=== PATIENT | male | born 1990 | race Caucasian/White ===

== ENCOUNTER 2017-05-28 15:03 | Emergency (ER) | payer BC ==
[2017-05-28 15:20] VITALS: BP 135/82; RESP 18; TEMP 98.9
[2017-05-28] MEDS ORDERED: IPRATROPIUM-ALBUTEROL 3 ML NEB INHALATION STA (16:02)
--- NOTE | 2017-05-28 16:10 | ED ---
SOB HPI - General Chief Complaint: Shortness of Breath Stated Complaint: SOB, Asthma Time Seen by Provider: 05/28/17 15:52 Source: patient, RN notes reviewed Mode of arrival: ambulatory Limitations: no limitations - History of Present Illness Initial Comments: This is a 27-year-old male who presents to the emergency department with chief complaint of shortness of breath. Patient states he has a history of asthma. He states that he has been feeling generally unwell for the past 2 days. He complains of cough, sinus congestion, runny nose, headache and myalgias. Patient states that he was at a seminar prior to arrival and was using his inhaler multiple times. He states that he continues to feel out of breath so presented to the emergency department. Denies any recorded fevers but states that he has been feeling on and off hot and cold. Denies chest pain, abdominal pain, nausea or vomiting, diarrhea or constipation. - Related Data Previous Rx's Medication Instructions Recorded traMADol HCl [Ultram] 50 mg PO Q4H PRN #20 tab 11/22/13 Ipratropium-Albuterol Nebulize 3 ml INHALATION Q6H PRN #30 neb 06/01/15 [Duoneb 0.5 mg-3 mg/3 ml Soln] methylPREDNISolone Dose Pack 4 mg PO DIRECTED #21 package 06/01/15 [Medrol Dose Pack] Oseltamivir [Tamiflu] 75 mg PO Q12HR #10 cap 05/28/17 Allergies Allergy/AdvReac Type Severity Reaction Status Date / Time No Known Allergies Allergy Verified 05/28/17 15:20 Review of Systems ROS Statement: Those systems with pertinent positive or pertinent negative responses have been documented in the HPI. ROS Other: All systems not noted in ROS Statement are negative. Past Medical History Past Medical History: Asthma History of Any Multi-Drug Resistant Organisms: None Reported Additional Past Surgical History / Comment(s): lower back cyst removed Past Psychological History: No Psychological Hx Reported Smoking Status: Never smoker Past Alcohol Use History: Occasional Past Drug Use History: None Reported General Exam - General Exam Comments Initial Comments: General: Awake and alert, well-developed; in no apparent distress. HEENT: Head atraumatic, normocephalic. Pupils are equal, round and reactive to light. Extraocular movements intact. Erythematous bilateral conjunctiva. Oropharynx moist without erythema or exudate. Bilateral TMs are pearly without effusion. Neck: Supple. Normal ROM. Cardiovascular: Regular rate and rhythm. No murmurs, rubs or gallops. Chest symmetrical. Respiratory: Lungs clear to auscultation bilaterally. No wheezes, rales or rhonchi. Normal respiratory effort with no use of accessory muscles. Musculoskeletal: Normal ROM, no tenderness, no pedal edema. Pulses 2+ equal and palpable bilaterally. Skin: [place], warm and dry without rashes or lesions. Neurological: Alert and oriented x3. CN II-XII grossly intact. Speech is fluent and answers are appropriate. No focal neuro deficits. Psychiatric: Normal mood and affect. No overt signs of depression or anxiety noted. Limitations: no limitations Course Vital Signs 05/28/17 05/28/17 05/28/17 15:17 16:05 16:17 Temperature 98.9 F Pulse Rate 105 H 104 H 108 H Respiratory 18 Rate Blood Pressure 135/82 O2 Sat by Pulse 98 Oximetry Medical Decision Making - Medical Decision Making This is a 27-year-old male who presented to the emergency department with chief complaint of shortness of breath. In the emergency department, his vital signs are stable and he does not appear to be in any acute distress. He was given a breathing treatment while in the emergency department. He did test positive for influenza A. Patient will be discharged home with a prescription for Tamiflu. Chest x-ray revealed no acute abnormalities. Patient developed a fever while in the emergency department and was treated with Tylenol. He is in no acute distress and will be discharged home. Recommended doing at-home nebulizer treatments up to 4 times daily. Return parameters were discussed. Patient is in agreement with plan and voices understanding. All questions were answered. - Lab Data Lab Results 05/28/17 Range/Units 15:21 Influenza Type A RNA Detected H (Not Detectd) Influenza Type B (PCR) Not Detected (Not Detectd) - Radiology Data Radiology results: report reviewed Chest x-ray findings: There is no focal airspace opacity, pleural effusion or pneumothorax seen currently. Interval resolution of left basilar linear opacity on prior. The cardiac silhouette size is within normal limits. The osseous structures are intact. Impression: No suspicious acute pulmonary processes currently. Disposition Clinical Impression: Influenza A Disposition: HOME SELF-CARE Condition: Good Instructions: Influenza (ED) Additional Instructions: Please take medications as prescribed. Please use at home nebulizing treatments up to 4 times daily. Please follow up with primary care provider within 1-2 days. Return to emergency department if symptoms should worsen or any concerns arise. Prescriptions: Oseltamivir [Tamiflu] 75 mg PO Q12HR #10 cap Referrals: Shawna Villanueva DO [Primary Care Provider] - 1-2 days Time of Disposition: 17:04
[2017-05-28 16:17] VITALS: PULSE 108
[2017-05-28] MEDS ORDERED: ACETAMINOPHEN TAB 500 MG TAB PO STA (16:47)
--- NOTE | 2017-05-28 16:59 | XR ---
EXAMINATION TYPE: XR chest 2V DATE OF EXAM: 05/28/2017 COMPARISON: Chest x-ray June 01, 2015. HISTORY: History of asthma with shortness of breath. TECHNIQUE: Frontal and lateral views of the chest are obtained. FINDINGS: There is no focal air space opacity, pleural effusion, or pneumothorax seen currently. Int erval resolution of left basilar linear opacity on prior. The cardiac silhouette size is within manuela l limits. The osseous structures are intact. IMPRESSION: No suspicious acute pulmonary process currently.
== END 2017-05-28 17:12 | disposition home or self-care (01) ==
LOC: EC 15:03
DX: J10.1 Influenza due to other identified influenza virus with other respiratory manifestations (principal); H11.89 Other specified disorders of conjunctiva; J45.909 Unspecified asthma, uncomplicated
CPT/HCPCS: 71046; 87502; 94640; 99285

== ENCOUNTER 2019-07-12 19:53 | Emergency (ER) | payer BC ==
--- NOTE | 2019-07-12 22:15 | ED ---
General Adult HPI - General Chief complaint: Dizziness Stated complaint: Dizziness, Nausea Time Seen by Provider: 07/12/19 21:28 Source: patient Mode of arrival: ambulatory Limitations: no limitations - History of Present Illness Initial comments: Carlos Manuel is a 29-year-old male with no significant past medical history presents the emergency department today for evaluation of near syncopal episode while working out. Patient states that he's been working out fairly regularly doing weights and getting light cardiac however today he was in a high intensity workout and begin feeling very flushed and lightheaded. He sat down and was kept having waves of lightheadedness and nausea without vomiting which prompted him to come to the ER for evaluation. Patient didn't have any chest pain palpitations or shortness of breath. He has no family history of cardiac disease or sudden cardiac . He has no history of diabetes or hypertension. He did eat prior to his workout. He reports he is feeling better now now it is resting. - Related Data Previous Rx's Medication Instructions Recorded traMADol HCl [Ultram] 50 mg PO Q4H PRN #20 tab 11/22/13 Ipratropium-Albuterol Nebulize 3 ml INHALATION Q6H PRN #30 neb 06/01/15 [Duoneb 0.5 mg-3 mg/3 ml Soln] methylPREDNISolone Dose Pack 4 mg PO DIRECTED #21 package 06/01/15 [Medrol Dose Pack] Oseltamivir [Tamiflu] 75 mg PO Q12HR #10 cap 05/28/17 Allergies Allergy/AdvReac Type Severity Reaction Status Date / Time No Known Allergies Allergy Verified 07/12/19 20:29 Review of Systems ROS Statement: Those systems with pertinent positive or pertinent negative responses have been documented in the HPI. ROS Other: All systems not noted in ROS Statement are negative. Past Medical History Past Medical History: Asthma History of Any Multi-Drug Resistant Organisms: MRSA Date of last positivie culture/infection: 2009 MDRO Source:: left leg Additional Past Surgical History / Comment(s): lower back cyst removed Past Psychological History: No Psychological Hx Reported Smoking Status: Never smoker Past Alcohol Use History: Occasional Past Drug Use History: None Reported General Exam - General Exam Comments Initial Comments: Physical Exam GENERAL: Patient is well-developed and well-nourished. Patient is nontoxic and well-hyd rated and is in no distress. HENT: Normocephalic, Atraumatic. EYES: PERRL, EOMI PULMONARY: Unlabored respirations. No audible rales rhonchi or wheezing was noted. CARDIOVASCULAR: There is a regular rate and rhythm without any murmurs gallops or rubs. ABDOMEN: Soft and nontender with normal bowel sounds. SKIN: Skin is clear with no lesions or rashes and otherwise unremarkable. : Deferred NEUROLOGIC: Patient is alert and oriented x3. Moving all extremities spontaneously MUSCULOSKELETAL: Normal extremities with adequate strength and full range of motion. No lower extremity swelling or edema. No calf tenderness. PSYCHIATRIC: Normal psychiatric evaluation. Limitations: no limitations Course Vital Signs 07/12/19 20:29 Temperature 98.0 F Pulse Rate 88 Respiratory 16 Rate Blood Pressure 145/81 O2 Sat by Pulse 96 Oximetry EKG Findings - EKG Comments: EKG Findings:: EKG was obtained due to complaining ERCP, EKG was obtained at 2036, rate is 90 rhythm is sinus there is a normal axis, normal intervals, OR is 146, QRS is 98, QTC is [address] elevations or depressions no evidence of acute ischemia, infarction or arrhythmia. There is criteria for possible LVH. Medical Decision Making - Medical Decision Making She was seen and evaluated history is obtained from patient Previously healthy but obese gentleman who is recent started a workout routine, during a very intense workout today became very lightheaded and felt like he was going to vomit. This persisted which prompted him come the ER for evaluation. Upon arrival he is feeling much better. EKG was nonischemic no signs of arrhythmia, possible early LVH chest x-ray with no acute findings At this time patient has been asymptomatic throughout his 2 hour stay in the emergency department is comfortable with the plan for discharge home, patient was advised follow-up with his primary care physician and discuss outpatient echocardiogram. Disposition Clinical Impression: Near syncope Disposition: HOME SELF-CARE Condition: Stable Instructions (If sedation given, give patient instructions): Near Syncope (ED) Additional Instructions: Follow-up with her primary care physician for reevaluation and discussion of whether or not you need an echo for near syncope and EKG finding of possible LVH. Is patient prescribed a controlled substance at d/c from ED?: No Referrals: Shawna Villanueva DO [Primary Care Provider] - 1-2 days [facility] [Provider Group] - 1-2 days
--- NOTE | 2019-07-12 22:27 | XR ---
EXAMINATION TYPE: XR chest 2V DATE OF EXAM: 07/12/2019 COMPARISON: 05/28/2017 HISTORY: Syncope. Nausea. TECHNIQUE: FINDINGS: Heart and mediastinum are normal. Lungs are clear. Diaphragm is normal. Bony thorax is inta ct. The pulmonary vascularity is normal. There are chest leads. IMPRESSION: Normal chest. Inspiration decreased slightly compared to old exam.
[2019-07-12 22:47] VITALS: BP 130/80; PULSE 81; RESP 18; TEMP 98.6
== END 2019-07-12 22:47 | disposition home or self-care (01) ==
LOC: EC 19:53
DX: R55 Syncope and collapse (principal); R42 Dizziness and giddiness; E66.9 Obesity, unspecified; R11.0 Nausea; Z86.14 Personal history of Methicillin resistant Staphylococcus aureus infection; Z68.41 Body mass index [BMI] 40.0-44.9, adult
CPT/HCPCS: 71046; 93005; 99284

== ENCOUNTER 2022-03-11 16:21 | Emergency (ER) | payer BC, OTHER ==
[2022-03-11 17:00] VITALS: RESP 20
[2022-03-11] MEDS ORDERED: ACETAMINOPHEN TAB 500 MG TAB PO STA (17:21)
[2022-03-11] MEDS ORDERED: IBUPROFEN 800 MG TAB PO STA (17:21)
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
--- NOTE | 2022-03-11 18:51 | XR ---
PROCEDURE: XR ankle complete RT - 3V DATE AND TIME: 03/11/2022 5:50 PM CLINICAL INDICATION: [facility]; fall, pain TECHNIQUE: Department protocol COMPARISON: None FINDINGS: The bones and joints appear intact. There is lateral soft tissue swelling. IMPRESSION: Negative for fracture/malalignment.
--- NOTE | 2022-03-11 18:53 | XR ---
PROCEDURE: XR foot complete RT - 3V DATE AND TIME: 03/11/2022 5:50 PM CLINICAL INDICATION: [facility]; fall, pain TECHNIQUE: Department protocol COMPARISON: None FINDINGS: There is no fracture or malalignment. The soft tissues are unremarkable. IMPRESSION: NO ACUTE PROCESS.
[2022-03-11 20:01] VITALS: TEMP 98
[2022-03-11 20:02] VITALS: BP 132/70; PULSE 76
== END 2022-03-11 19:50 | disposition home or self-care (01) ==
LOC: EC 16:21
DX: S93.401A Sprain of unspecified ligament of right ankle, initial encounter (principal); J45.909 Unspecified asthma, uncomplicated; W18.42XA Slipping, tripping and stumbling without falling due to stepping into hole or opening, initial encounter
CPT/HCPCS: 73610; 73630; 99283; L4350

== ENCOUNTER 2022-04-10 22:00 | Emergency (ER) | payer BC ==
[2022-04-10] MEDS ORDERED: methylPREDNISolone SOD SUCCI 125 MG/2 ML VIAL IV STA (22:12)
[2022-04-10] MEDS ORDERED: ACETAMINOPHEN TAB 500 MG TAB PO STA (22:13)
[2022-04-10] MEDS ORDERED: ALBUTEROL HFA INHALER INHALATION STA (22:14)
--- NOTE | 2022-04-10 22:18 | ED ---
General Adult HPI - General Chief complaint: Upper Respiratory Infection Stated complaint: SOB Time Seen by Provider: 04/10/22 22:07 Source: patient, RN notes reviewed Mode of arrival: ambulatory - History of Present Illness Initial comments: This is a pleasant 32-year-old male with a history of asthma. He presents to the emergency department stating that he has felt ill since Tuesday. Patient states he started with symptoms of what he is calling a "chest cold cold." Pat ient states he's had a runny nose, dry cough. Patient also complaining of some left-sided chest pain which started a few hours ago. He states it seemed to radiate toward his left shoulder and was causing some tingling down his left arm. He states he believes this was related to the amount of coffee he's been doing. Patient has been using his inhaler at home but he states it is so does not helping. He is on aspirin exposed to his daughter who was symptoms of respiratory disease. Patient states he has felt febrile, has had body aches, mild headache. Chest pain not related to exertion. No diaphoresis. no changes in vision or hearing, no sore throat or difficulty with speech, no neck pain,, no abdominal pain, no nausea or vomiting, no changes in urination or bowel movements, no numbness or tingling, no extremity pain, no skin rashes or lesions. No history of immunosuppression. No history of cardiac disease or diabetes. Past medical, surgical, social, and family history reviewed. - Related Data Previous Rx's Medication Instructions Recorded traMADol HCl [Ultram] 50 mg PO Q4H PRN #20 tab 11/22/13 Ipratropium-Albuterol Nebulize 3 ml INHALATION Q6H PRN #30 neb 06/01/15 [Duoneb 0.5 mg-3 mg/3 ml Soln] methylPREDNISolone Dose Pack 4 mg PO DIRECTED #21 package 06/01/15 [Medrol Dose Pack] Oseltamivir [Tamiflu] 75 mg PO Q12HR #10 cap 05/28/17 Albuterol Inhaler [Ventolin Hfa 2 puff INHALATION Q4HR PRN #1 each 04/10/22 Inhaler] Albuterol Nebulized [Ventolin 2.5 mg INHALATION Q4H #50 ml 04/10/22 Nebulized] Allergies Allergy/AdvReac Type Severity Reaction Status Date / Time Iodinated Contrast Media Allergy Anaphylaxis Verified 04/10/22 22:05 Review of Systems ROS Statement: Those systems with pertinent positive or pertinent negative responses have been documented in the HPI. ROS Other: All systems not noted in ROS Statement are negative. Past Medical History Past Medical History: Asthma History of Any Multi-Drug Resistant Organisms: MRSA Date of last positivie culture/infection: 2009 MDRO Source:: left leg Additional Past Surgical History / Comment(s): lower back cyst removed Past Psychological History: No Psychological Hx Reported Smoking Status: Never smoker Past Alcohol Use History: Occasional Past Drug Use History: None Reported General Exam - General Exam Comments Initial Comments: Patient appears to be mild distress. Patient noted be tachycardic and hypoxemic on arrival. Patient not tachypneic. Mild increased work of breathing. General appearance: alert, in distress, obese Head exam: Present: atraumatic, normocephalic, normal inspection Eye exam: Present: normal appearance, PERRL, EOMI. Absent: scleral icterus, conjunctival injection, periorbital swelling ENT exam: Present: normal exam, normal oropharynx, mucous membranes moist, TM's normal bilaterally, normal external ear exam. Absent: mucous membranes dry Neck exam: Present: normal inspection, full ROM. Absent: tenderness, meningismus, lymphadenopathy Respiratory exam: Present: wheezes (Scant expiratory wheezes with forced expiration). Absent: respiratory distress, rales, rhonchi, stridor Cardiovascular Exam: Present: normal rhythm, tachycardia, normal heart sounds. Absent: systolic murmur, diastolic murmur, rubs, gallop, clicks GI/Abdominal exam: Present: soft, normal bowel sounds. Absent: distended, tenderness, guarding, rebound, rigid Extremities exam: Present: normal inspection, full ROM, normal capillary refill. Absent: tenderness, pedal edema, joint swelling, calf tenderness Back exam: Present: normal inspection Neurological exam: Present: alert, oriented X3, CN II-XII intact Psychiatric exam: Present: normal affect, normal mood Skin exam: Present: warm, dry, intact, normal color. Absent: rash Course Vital Signs 04/10/22 04/10/22 04/10/22 22:03 22:11 22:50 Temperature 99.9 F H 99.2 F Pulse Rate 111 H 105 H Respiratory 18 24 22 Rate Blood Pressure 126/70 135/87 O2 Sat by Pulse 93 L 93 L Oximetry 04/10/22 23:41 Temperature Pulse Rate 100 Respiratory 18 Rate Blood Pressure 123/70 O2 Sat by Pulse 92 L Oximetry - Reevaluation(s) Reevaluation #1: 04/10/22 23:47 Medical record is reviewed Symptoms are improved here in the emergency department Patient is informed of results and questions answered Patient in no distress Reevaluation #2: 04/10/22 23:54 Patient much improved on reevaluation. Still has oxygen saturation 93% on room air. No increased work of breathing. EKG Findings - EKG Comments: EKG Findings:: EKG done at 2216 independently reviewed by me reveals sinus tachycardia with a rate of 108. Normal axis. Normal intervals. Nonspecific T- wave abnormality. Mainly flattening in lead V6 and lead 3. No more tears pathology otherwise. When compared to the previous study from 07/12/2019 there is no significant change. Medical Decision Making - Medical Decision Making Differential diagnosis, viral syndrome secondary to COVID-19, influenza, RSV, other viral etiology such as adenovirus or rhinovirus. Possible bacterial pneumonia. I think this is less likely cardiac disease based on the patient's presenting symptomology. However we will order an EKG and a troponin. Pulmonary embolism possibility but unlikely. EKG did not show any significant changes. Troponin negative. D-dimer negative. Patient's heart score is actually 0. Given the patient's age and low heart score, I do not believe he is significant risk for cardiac disease. Suspect the patient's symptomology is related to the influenza a Chest x-ray independently interpreted by me reveals no evidence of acute pathology. Reviewed radiology interpretation. Discussed conservative therapy with the patient. Patient outside the window for Tamiflu. The case was discussed in detail with ED attending physician. Presentation, findings, treatment plan discussed in detail. Patient was told to return to the ER for any signs or symptoms worsen. Told to return immediately if any other problems arise. All questions answered. Treatment plan discussed. Patient in agreement Every effort has been made to ensure accuracy of this dictation. However, due to the limitations of electronic medical records and dictation devices, errors in charting still occur. Discussed all findings with the patient. Patient concurs with treatment plan. Supervising physician Dr. Peres - Lab Data Result diagrams: 04/10/22 22:16 04/10/22 22:16 Lab Results 04/10/22 04/10/22 04/10/22 Range/Units 22:16 22:16 22:16 WBC 4.6 (3.8-10.6) k/uL RBC 5.07 (4.30-5.90) m/uL Hgb 15.0 (13.0-17.5) gm/dL Hct 42.5 (39.0-53.0) % MCV 84.0 (80.0-100.0) fL MCH 29.6 (25.0-35.0) pg MCHC 35.2 (31.0-37.0) g/dL RDW 12.3 (11.5-15.5) % Plt Count 145 L (150-450) k/uL MPV 9.5 Neutrophils % 68 % Lymphocytes % 20 % Monocytes % 7 % Eosinophils % 0 % Basophils % 1 % Neutrophils # 3.1 (1.3-7.7) k/uL Lymphocytes # 0.9 L (1.0-4.8) k/uL Monocytes # 0.3 (0-1.0) k/uL Eosinophils # 0.0 (0-0.7) k/uL Basophils # 0.0 (0-0.2) k/uL D-Dimer (<0.60) mg/L FEU Sodium 134 L (137-145) mmol/L Potassium 3.8 (3.5-5.1) mmol/L Chloride 100 (98-107) mmol/L Carbon Dioxide 24 (22-30) mmol/L Anion Gap 10 mmol/L BUN 16 (9-20) mg/dL Creatinine 1.02 (0.66-1.25) mg/dL Est GFR (CKD-EPI)AfAm >90 (>60 ml/min/1.73 sqM) Est GFR (CKD-EPI)NonAf >90 (>60 ml/min/1.73 sqM) Glucose 108 H (74-99) mg/dL Calcium 8.9 (8.4-10.2) mg/dL Magnesium 1.9 (1.6-2.3) mg/dL Total Bilirubin 0.4 (0.2-1.3) mg/dL AST 39 (17-59) U/L ALT 34 (4-49) U/L Alkaline Phosphatase 70 (38-126) U/L Troponin I <0.012 (0.000-0.034) ng/mL Total Protein 6.9 (6.3-8.2) g/dL Albumin 4.3 (3.5-5.0) g/dL Influenza Type A (PCR) (Not Detectd) Influenza Type B (PCR) (Not Detectd) RSV (PCR) (Not Detectd) SARS-CoV-2 (PCR) (Not Detectd) 04/10/22 04/10/22 Range/Units 22:16 22:49 WBC (3.8-10.6) k/uL RBC (4.30-5.90) m/uL Hgb (13.0-17.5) gm/dL Hct (39.0-53.0) % MCV (80.0-100.0) fL MCH (25.0-35.0) pg MCHC (31.0-37.0) g/dL RDW (11.5-15.5) % Plt Count (150-450) k/uL MPV Neutrophils % % Lymphocytes % % Monocytes % % Eosinophils % % Basophils % % Neutrophils # (1.3-7.7) k/uL Lymphocytes # (1.0-4.8) k/uL Monocytes # (0-1.0) k/uL Eosinophils # (0-0.7) k/uL Basophils # (0-0.2) k/uL D-Dimer 0.23 (<0.60) mg/L FEU Sodium (137-145) mmol/L Potassium (3.5-5.1) mmol/L Chloride (98-107) mmol/L Carbon Dioxide (22-30) mmol/L Anion Gap mmol/L BUN (9-20) mg/dL Creatinine (0.66-1.25) mg/dL Est GFR (CKD-EPI)AfAm (>60 ml/min/1.73 sqM) Est GFR (CKD-EPI)NonAf (>60 ml/min/1.73 sqM) Glucose (74-99) mg/dL Calcium (8.4-10.2) mg/dL Magnesium (1.6-2.3) mg/dL Total Bilirubin (0.2-1.3) mg/dL AST (17-59) U/L ALT (4-49) U/L Alkaline Phosphatase (38-126) U/L Troponin I (0.000-0.034) ng/mL Total Protein (6.3-8.2) g/dL Albumin (3.5-5.0) g/dL Influenza Type A (PCR) Detected A (Not Detectd) Influenza Type B (PCR) Not Detected (Not Detectd) RSV (PCR) Not Detected (Not Detectd) SARS-CoV-2 (PCR) Not Detected (Not Detectd) Disposition Clinical Impression: Influenza A, Asthma exacerbation, mild Disposition: HOME SELF-CARE Condition: Good Instructions (If sedation given, give patient instructions): Influenza (ED), Asthma (ED) Additional Instructions: Alternate acetaminophen and ibuprofen for fever control. Follow-up with your regular physician as directed. Return to the ER immediately if any symptoms worsen, new symptoms arise, or any other problems develop. Is patient prescribed a controlled substance at d/c from ED?: No Referrals: Shawna Villanueva DO [Primary Care Provider] - 1-2 days Time of Disposition: 23:58
[2022-04-10 22:39] LABS: Basophils % (A) 1 %; Eosinophils % (A) 0 %; HCT 42.5 % (39.0-53.0); Lymphocytes # (A) 0.9 k/uL (1.0-4.8); Lymphocytes % (A) 20 %; MCH 29.6 pg (25.0-35.0); MCHC 35.2 g/dL (31.0-37.0); Mean Platelet Volume 9.5; Monocytes # (A) 0.3 k/uL (0-1.0); Monocytes % (A) 7 %; Neutrophils # (A) 3.1 k/uL (1.3-7.7); Neutrophils % (A) 68 %; Platelet Count 145 k/uL (150-450); RBC 5.07 m/uL (4.30-5.90); RDW 12.3 % (11.5-15.5); WBC 4.6 k/uL (3.8-10.6)
--- NOTE | 2022-04-10 22:44 | XR ---
EXAMINATION TYPE: XR chest 2V DATE OF EXAM: 04/10/2022 COMPARISON: 11/18/2020 HISTORY: Short of breath TECHNIQUE: FINDINGS: Heart is normal. Lungs are clear. Diaphragm is normal. Bony thorax is intact IMPRESSION: Normal chest. No change.
[2022-04-10 22:50] VITALS: TEMP 99.2
[2022-04-10 22:53] LABS: ALT 34 U/L (4-49); AST 39 U/L (17-59); African American GFR (CKD) >90 (>60 ml/min/1.73 sqM); Albumin 4.3 g/dL (3.5-5.0); Alkaline Phosphatase 70 U/L (38-126); Anion Gap 10 mmol/L; Blood Urea Nitrogen 16 mg/dL (9-20); Calcium 8.9 mg/dL (8.4-10.2); Carbon Dioxide 24 mmol/L (22-30); Chloride 100 mmol/L (98-107); Glucose 108 mg/dL (74-99); Magnesium 1.9 mg/dL (1.6-2.3); Non-African American GFR(CKD) >90 (>60 ml/min/1.73 sqM); Potassium 3.8 mmol/L (3.5-5.1); Sodium 134 mmol/L (137-145); Total Bilirubin 0.4 mg/dL (0.2-1.3); Total Protein 6.9 g/dL (6.3-8.2)
[2022-04-10 23:41] VITALS: BP 123/70; PULSE 100; RESP 18
== END 2022-04-11 00:23 | disposition home or self-care (01) ==
LOC: EC 22:00
DX: J10.1 Influenza due to other identified influenza virus with other respiratory manifestations (principal); J45.901 Unspecified asthma with (acute) exacerbation; Z91.041 Radiographic dye allergy status; Z20.822 Contact with and (suspected) exposure to COVID-19
CPT/HCPCS: 99285; 96374; 36415; 94640; 93005; 85379; 80053; 83735; 84484; 85025; 87636; 71046; J2930

== ENCOUNTER 2022-05-31 20:00 | Emergency (ER) | payer BC ==
[2022-05-31] MEDS ORDERED: FLUORESCEIN STRIPS 1 MG STRIP RIGHT EYE ONE (21:11)
[2022-05-31] MEDS ORDERED: SULFACETAMIDE SOD 10% OPHTH DROPS 15 ML BTL RIGHT EYE STA (21:12)
--- NOTE | 2022-05-31 21:20 | ED ---
Eye Problem HPI - General Chief complaint: Eye Problems Stated complaint: rt eye irritation Time Seen by Provider: 05/31/22 20:41 Source: patient, RN notes reviewed Mode of arrival: ambulatory Limitations: no limitations - History of Present Illness Initial comments: This is a 32-year-old male who presents to the emergency department for eye problems. Patient states that earlier today, he started to develop redness and tearing to the right eye. Also states that he noticed mucus in the eye. States that his eye is very red, but not horribly painful. Denies any visual changes. He does not have a gritty or foreign body sensation in the eye. Does not believe that he scratched his eye or got anything in it. He has not had any fevers, chills, or upper respiratory symptoms. Denies any fevers, chills, sore throat, cough, dyspnea, chest pain, palpitations, abdominal pain, nausea, vomiting, diarrhea, back pain, or headaches. MD chief complaint: eye redness Location: right eye - Related Data Previous Rx's Medication Instructions Recorded traMADol HCl [Ultram] 50 mg PO Q4H PRN #20 tab 11/22/13 Ipratropium-Albuterol Nebulize 3 ml INHALATION Q6H PRN #30 neb 06/01/15 [Duoneb 0.5 mg-3 mg/3 ml Soln] methylPREDNISolone Dose Pack 4 mg PO DIRECTED #21 package 06/01/15 [Medrol Dose Pack] Oseltamivir [Tamiflu] 75 mg PO Q12HR #10 cap 05/28/17 Albuterol Inhaler [Ventolin Hfa 2 puff INHALATION Q4HR PRN #1 each 04/10/22 Inhaler] Albuterol Nebulized [Ventolin 2.5 mg INHALATION Q4H #50 ml 04/10/22 Nebulized] predniSONE 50 mg PO DAILY #5 tab 04/11/22 Allergies Allergy/AdvReac Type Severity Reaction Status Date / Time Iodinated Contrast Media Allergy Anaphylaxis Verified 04/10/22 22:05 Review of Systems ROS Statement: Those systems with pertinent positive or pertinent negative responses have been documented in the HPI. ROS Other: All systems not noted in ROS Statement are negative. Past Medical History Past Medical History: Asthma History of Any Multi-Drug Resistant Organisms: MRSA Date of last positivie culture/infection: 2009 MDRO Source:: left leg Additional Past Surgical History / Comment(s): lower back cyst removed Past Psychological History: No Psychological Hx Reported Smoking Status: Never smoker Past Alcohol Use History: Occasional Past Drug Use History: None Reported General Exam Limitations: no limitations General appearance: alert, in no apparent distress Head exam: Present: atraumatic, normocephalic, normal inspection Eye exam: Present: PERRL, EOMI, conjunctival injection (right) Pupils: Present: normal accommodation Respiratory exam: Present: normal lung sounds bilaterally. Absent: respiratory distress, wheezes, rales, rhonchi, stridor Cardiovascular Exam: Present: regular rate, normal rhythm, normal heart sounds. Absent: systolic murmur, diastolic murmur, rubs, gallop, clicks Neurological exam: Present: alert, oriented X3, CN II-XII intact Psychiatric exam: Present: normal affect, normal mood Skin exam: Present: warm, dry, intact, normal color. Absent: rash Course Vital Signs 05/31/22 05/31/22 20:09 21:52 Temperature 98 F 98.3 F Pulse Rate 96 86 Respiratory 16 17 Rate Blood Pressure 161/94 136/87 O2 Sat by Pulse 97 97 Oximetry Medical Decision Making - Medical Decision Making This is a 32-year-old male who presents to the emergency department for right eye pain and redness. Was pt. sent in by a medical professional or institution? @ -No Did you speak to anyone other than the patient for history? @ -No Did you review nursing and triage notes? @ -Yes, and I agree, it is accurate with regards to the patient's symptoms. Were old charts reviewed? @ -No Differential Diagnosis? @ -Differential Eye Redness: Conjunctivitis, corneal abrasion, blepharitis, episcleritis, subconjunctival hemorrhage, right eye, iritis, keratitis, scleritis, acute angle-closure glaucoma, this is not meant to be an all-inclusive list. What testing was considered but not performed? (CT, X-rays, U/S, labs)? Why? @ -None What meds were considered but not given? Why? @ -None Did you discuss the management of the patient with other professionals? @ -No Did you reconcile home meds? @ -No Was smoking cessation discussed for >3mins.? @ -No Was critical care preformed (if so, how long)? @ -No Were there social determinants of health that impacted care today? How? (Homelessness, low income, unemployed, alcoholism, drug addiction, transportation, low edu. Level, literacy, decrease access to med. care, [facility], rehab)? @ -No Was there de-escalation of care discussed even if they declined? (Discuss DNR or withdrawal of care, Hospice)? @ -No What co-morbidities impacted this encounter? (DM, HTN, Smoking, COPD, CAD, Cancer, CVA, Hep., AIDS, mental health diagnosis, sleep apnea, morbid obesity)? @ -None Was patient admitted / discharged? @ -Discharged. Fluorescein staining performed revealing no evidence of a corneal abrasion. Symptoms most consistent with a conjunctivitis. Will treat patient with sulfacetamide eyedrops. This was provided in the emergency department due to his pharmacy being closed. Dosing instructions reviewed. Also advised to apply warm compresses. Undiagnosed new problem with uncertain prognosis? @ -None Drug Therapy requiring intensive monitoring for toxicity (Heparin, Nitro, I nsulin, Cardizem)? @ -None Were any procedures done? @ -Fluorescein staining Diagnosis/symptom? @ -Conjunctivitis Acute, or Chronic, or Acute on Chronic? @ -Acute Uncomplicated (without systemic symptoms) or Complicated (systemic symptoms)? @ -Uncomplicated Side effects of treatment? @ -None Exacerbation, Progression, or Severe Exacerbation] @ -Not applicable Poses a threat to life or bodily function? @ -No Return precautions reviewed in depth, the patient is instructed to return to the emergency department with any new, worsening, or concerning symptoms. Patient verbalized understanding. This case was discussed in detail with the attending ED physician, Dr. Villanueva. Presentation, findings, and treatment plan discussed in detail as well. Disposition Clinical Impression: Conjunctivitis Disposition: HOME SELF-CARE Instructions (If sedation given, give patient instructions): Conjunctivitis (ED) Additional Instructions: Return to the emergency department with any new, worsening, or concerning symptoms. Apply 2 drops in the right eye every 2-3 hours for 5-7 days. Apply warm compresses as well. Follow up with your primary care provider in 1-2 days. Is patient prescribed a controlled substance at d/c from ED?: No Referrals: Shawna Villanueva, [Primary Care Provider] - 1-2 days
[2022-05-31] MEDS: PROPARACAINE 0.5% OPHTH DROPS 15 ML BTL RIGHT EYE SCH ×3 (21:23→21:29)
[2022-05-31 21:53] VITALS: BP 136/87; PULSE 86; RESP 17; TEMP 98.3
== END 2022-05-31 21:53 | disposition home or self-care (01) ==
LOC: EC 20:00
DX: H10.9 Unspecified conjunctivitis (principal); J45.909 Unspecified asthma, uncomplicated; Z91.041 Radiographic dye allergy status
CPT/HCPCS: 99283

== ENCOUNTER → 2024-02-17 | Outpatient (CLI) | payer BC ==
[2024-02-17 18:53] LABS: Calcium 10.1 mg/dL (8.7-10.3)
== END | disposition home or self-care (01) ==
LOC: LABWHC1 13:44
PROVIDERS: ATTEND Family Medicine
DX: E83.52 Hypercalcemia (principal)
CPT/HCPCS: 36415; 82306; 82310; 83970

== ENCOUNTER → 2024-04-11 | Outpatient (CLI) | payer BC ==
--- NOTE | 2024-04-12 09:00 | US ---
EXAMINATION TYPE: US abdomen limited DATE OF EXAM: 04/11/2024 COMPARISON: NONE CLINICAL INDICATION: Male, 34 years old with history of R22.2 LOCALIZED SWELLING MASS LUMP; Abd wall mas lump. TECHNIQUE: FINDINGS: Scanned midline abdomen sup to inf. No abnormalities seen. IMPRESSION: 1. No abnormality at the local palpable region within the abdominal wall. [facility], , 04/12/2024 8:58 AM
== END | disposition home or self-care (01) ==
LOC: RADUSWWP 12:24
PROVIDERS: ATTEND Surgery Plastic and Reconstructive Surgery
DX: R22.2 Localized swelling, mass and lump, trunk (principal)
CPT/HCPCS: 76705